=== PATIENT | male | born 1955 | race Two or more races ===

== ENCOUNTER 2016-12-18 07:36 | Day surgery (SDC) | payer BC ==
[~2016-12-18] VITALS: Ht 182.9 cm; Wt 125.2 kg
--- NOTE | ~2016-12-18 | EGD ---
EGD REPORT [facility] [address] [place] [address] NAME: YAMILE DESAI : [birth year] STATUS : [facility]#: [id number] AGE: 60 ADM/REG DATE : 12/18/16 MR#: [id number] REPORT SERV DATE: 12/22/16 DICTATED BY: POPPY DRIVER DATE: 12/22/16 REPORT STATUS : Draft TRANSCRIBED BY: [facility] DATE: 12/22/16 Endoscopy Center Patient Name: Yamile Desai Date of : 1955 Attending MD: POPPY DRIVER MD Procedure Date No Time: 12/18/2016 Procedure: Colonoscopy Indications: Screening for colorectal malignant neoplasm Referring MD: LOYDA GO Medicines: as per anesthesia Complications: No immediate complications. Procedure: Pre-Anesthesia Assessment: - ASA Grade Assessment: III - A patient with severe systemic disease. After I obtained informed consent, the scope was passed under direct vision. Throughout the procedure, the patient's blood pressure, pulse, and oxygen saturations were monitored continuously. The PCF [id number] was introduced through the anus and advanced to the cecum, identified by appendiceal orifice and ileocecal valve. The colonoscopy was performed without difficulty. The patient tolerated the procedure. The quality of the bowel preparation was adequate to identify polyps. Findings: The perianal and digital rectal examinations were normal. Many small and large-mouthed diverticula were found in the sigmoid colon, in the descending colon, in the transverse colon and in the ascending colon. Internal hemorrhoids were found during endoscopy and were mild. Impression: - Diverticulosis in the sigmoid colon, in the descending colon, in the transverse colon and in the ascending colon. - Internal hemorrhoids. Recommendation: - Repeat colonoscopy in 10 years for surveillance. Procedure Code(s): --- Professional --- 05487, Colonoscopy, flexible, proximal to splenic flexure; diagnostic, with or without collection of specimen(s) by brushing or washing, with or without colon decompression (separate procedure) Diagnosis Code(s): --- Professional --- EGD REPORT [address] [place]. [address] NAME: YAMILE DESAI : [birth year] STATUS : [facility]#: [id number] AGE: 60 ADM/REG DATE : 12/18/16 MR#: [id number] REPORT SERV DATE: 12/22/16 DICTATED BY: POPPY DRIVER DATE: 12/22/16 REPORT STATUS : Draft TRANSCRIBED BY: [employer] DATE: 12/22/16 K64.8, Other hemorrhoids K57.30, Diverticulosis of large intestine without perforation or abscess without bleeding Z12.11, Encounter for screening for malignant neoplasm of colon CPT copyright 2013 [employer]. All rights reserved. The codes documented in this report are preliminary and upon curriculum coordinator review may be revised to meet current compliance requirements. POPPY DRIVER MD 12/18/2016 9:53 AM This report has been signed electronically. Number of Addenda: 0 Note Initiated On: 12/18/2016 9:28 AM Scope Withdrawal Time 0 hours 6 minutes [address] [place], [place] [address] [address]
[~2016-12-18 07:36] MED LIST: ASAB PO; EXCEDRIN EXTRA1 EACH PO; FISH-EPA1000 MG PO; GLUCCHONDR PO; GLUCOPHAGE1000 MG PO; HYZAAR 100/25 T1 TAB PO; LIPITOR40 PO; MOBIC15 MG PO; MULTIPLE VIT PO; NIFEDIAC CC60 MG PO; T3 PO; ZOCOR40 PO
== END 2016-12-18 23:59 | disposition home or self-care (01) ==
LOC: DMU 07:36
PROVIDERS: Internal Medicine Gastroenterology
PROC: 0DJD8ZZ Inspection of Lower Intestinal Tract, Via Natural or Artificial Opening Endoscopic (ICD-10-PCS; principal; 2016-12-18 09:30)
DX: Z12.11 Encounter for screening for malignant neoplasm of colon (principal); K57.90 Diverticulosis of intestine, part unspecified, without perforation or abscess without bleeding; K64.8 Other hemorrhoids; I10 Essential (primary) hypertension; E11.9 Type 2 diabetes mellitus without complications; E78.00 Pure hypercholesterolemia, unspecified; J45.909 Unspecified asthma, uncomplicated; G47.33 Obstructive sleep apnea (adult) (pediatric); Z90.79 Acquired absence of other genital organ(s); Z96.653 Presence of artificial knee joint, bilateral; Z79.82 Long term (current) use of aspirin; Z79.84 Long term (current) use of oral hypoglycemic drugs; Z79.899 Other long term (current) drug therapy; Z98.890 Other specified postprocedural states
CPT/HCPCS: 82962